=== PATIENT | female | born 1950 | race Caucasian/White ===

== ENCOUNTER 2017-09-24 08:47 | Emergency (ER) | payer MEDICARE, MEDICAID ==
[~2017-09-24] VITALS: Ht 160 cm; Wt 44.5 kg
[2017-09-24 09:01] VITALS: BP 159/93
[2017-09-24] MEDS ORDERED: IBUPROFEN600 MG ORAL (09:35)
[2017-09-24] MEDS ORDERED: GENTAMICIN SUL3.5 GM OP (09:35)
[2017-09-24 09:55] VITALS: BP 159/93
--- NOTE | 2017-09-24 10:15 | Emergency Room Report ---
History of Present Illness General Chief Complaint: Eye Problems Source: Patient Present Illness HPI Patient presents with complaints of left eyebrow redness discharge Ongoing for the past 7 days Patient reports that she wears contacts and has taken her contacts out recently Denies any headache denies any chest pain Patient has eye exam about 3 years ago and has prescription for new glasses and new prescription for contacts Patient reports that when she does not have her contacts in her vision is somewhat blurry However denies any change in vision acutely with the redness Allergies: Coded Allergies: No Known Allergies (Unverified , 09/24/17) Patient History Past Medical History: see triage record Pertinent Family History: none Last Menstrual Period: na Reviewed Nursing Documentation: PMH: Agreed, PSxH: Agreed Nursing Documentation-PMH Past Medical History: No History, Except For Hx Hypertension: Yes History Of Psychiatric Problem: Yes - depression Review of Systems All Other Systems: negative except mentioned in HPI Physical Exam Vital Signs Date Time Temp Pulse Resp B/P (MAP) Pulse Ox O2 Delivery O2 Flow Rate FiO2 09/24/17 08:51 97.8 95 18 159/93 98 Room Air 97.9 Sp02 EP Interpretation: reviewed, normal General Appearance: well appearing, no apparent distress Head: normocephalic, atraumatic Eyes: left eye other - Conjunctivitis, no fluorescing uptake, pupil reactive, bilateral eye PERRL, bilateral eye EOMI ENT: normal pharynx, no angioedema Neck: supple Respiratory: lungs clear Cardiovascular #1: regular rate, rhythm Musculoskeletal: normal inspection Neurologic: alert, oriented x3 Skin: other - No surrounding erythema or swelling Lymphatic: no adenopathy Medical Decision Making Diagnostic Impression: Primary Impression: conjunctivitis ER Course Patient's optic pressure is normal clinically no signs of any proptosis or sunken eye Pupil reacts appropriately suspicion for glaucoma is low Patient has discharge from the left eye Also yellowish crusting All findings are in line with bacterial conjunctivitis patient placed on antibiotics and requires close follow-up Last Vital Signs Date Time Temp Pulse Resp B/P (MAP) Pulse Ox O2 Delivery O2 Flow Rate FiO2 09/24/17 09:55 97.9 18 159/93 98 Room Air 97.9 09/24/17 08:51 95 Status: unchanged Disposition: HOME, SELF-CARE Condition: Stable Scripts Ibuprofen* (MOTRIN*) 600 Mg Tablet 600 MG ORAL Q8H Y for For Pain, #20 TAB 0 Refills Prov: J Luis Shea DO 09/24/17 Gentamicin Sulfate* (GENTAMICIN SULFATE*) 3.5 Gm Oint...g. 3.5 GM OP TID for 7 Days, GM Prov: J Luis Shea DO 09/24/17 Patient Instructions: Bacterial Conjunctivitis Additional Instructions: Patient is provided with the discharge instructions notified to follow up with primary doctor in the next 2-3 days otherwise return to the er with any worsening symptoms. Please note that this report is being documented using miiCard technology. This can lead to erroneous entry secondary to incorrect interpretation by the dictating instrument. J Luis Shea DO Sep 24, 2017 10:15
== END 2017-09-24 09:55 | disposition home or self-care (01) ==
LOC: EMR 09:15
DX: H10.9 Unspecified conjunctivitis (principal); F32.9 Major depressive disorder, single episode, unspecified; I10 Essential (primary) hypertension
CPT/HCPCS: 99284

== ENCOUNTER 2017-12-01 16:02 | Emergency (ER) | payer MEDICARE, MEDICAID ==
[~2017-12-01] VITALS: Ht 160 cm; Wt 90.3 kg
[~2017-12-01 16:02] MED LIST: GENTAMICIN SUL3.5 GM OP; IBUPROFEN600 MG ORAL
[2017-12-01] MEDS ORDERED: Tetracaine 0.5% Opth 4ml Soln BOTH EYES ONE (16:30)
[2017-12-01] MEDS ORDERED: Fluorescein Strips BOTH EYES ONE (16:30)
--- NOTE | 2017-12-01 16:32 | Emergency Room Report ---
History of Present Illness General Chief Complaint: Eye Problems Source: Patient Present Illness HPI 67-year-old female patient presents to ER complaining of burning right eye pain for the past daily. Patient reports pain, itchiness, foreign body sensation in right eye. reports green white crust in right eye during this time. Patient also complaint similar symptoms and left eye during this time. Patient reports that she has been wearing contact lenses for the past 5 years, states that she has been wearing the same pain during this time. Reports previously seen in this ER for conjunctivitis, states symptoms are not hurt as bad as they did that time. Patient reports she has not seen an system support specialist 8 years. denies worsening of vision symptoms. Denies other acute symptoms at this time.denies history of STI. Denies history of a,. Reports history of cataracts, does not know in which eye.reports up to date on vaccinations. Denies exposure to chemicals in eyes. Allergies: Coded Allergies: No Known Allergies (Unverified , 09/24/17) Patient History Past Medical History: see triage record Reviewed Nursing Documentation: PMH: Agreed; PSxH: Agreed Nursing Documentation-PMH Past Medical History: No History, Except For Hx Hypertension: Yes History Of Psychiatric Problem: Yes - Depression Hx Neurological Problems: Yes - chronic back pain s/p spinal fusion, migraines Review of Systems All Other Systems: negative except mentioned in HPI Physical Exam Vital Signs Date Time Temp Pulse Resp B/P (MAP) Pulse Ox O2 Delivery O2 Flow Rate FiO2 12/01/17 16:16 98.1 98 16 130/82 96 Room Air 98.1 Sp02 EP Interpretation: reviewed, normal General Appearance: well appearing, no apparent distress, alert, GCS 15, non- toxic Head: normocephalic, atraumatic Eyes: left eye Scleral Injection; bilateral eye normal inspection, bilateral eye PERRL, bilateral eye fluoroscene uptake - 1-2 mm area of increased uptake at 9 o'clock position in right eye and 3 o'clock position in left eye, no foreign body visualized, no rust ring, bilateral eye EOMI, bilateral eye other - no proptosis, ENT: hearing grossly normal, normal pharynx, no angioedema, normal voice, uvula midline, moist mucus membranes Neck: full range of motion Respiratory: lungs clear, normal breath sounds, no rhonchi, no respiratory distress, no accessory muscle use, no wheezing, speaking full sentences Cardiovascular #1: regular rate, rhythm, no edema Musculoskeletal: back normal, digits/nails normal, gait/station normal, normal range of motion, non-tender Neurologic: alert, oriented x3, responsive, motor strength/tone normal, sensory intact Psychiatric: mood/affect normal Medical Decision Making PA Attestation Dr. Diamond is my supervising Physician whom patient management has been discussed with. Diagnostic Impression: Primary Impression: Corneal abrasion ER Course Pt. presents to the ED c/o eye pain. Ddx considered but are not limited to FB in eye, corneal abrasion, corneal ulcer , blepharitis, orbital blowout fracture, subconjunctival hemorrhage. Patient has no signs of surrounding cellulitis, no pain with eye movement, does not require imaging at this time. low suspicion for glaucoma, no proptosis, no pain with eye movement, pupils equal and reactive to light bilaterally, no worsening symptoms. Vital signs: are WNL, pt. is afebrile PERFORM VISUAL ACUITY Lid Eversion ORDERS: Ophthalmic Tetracaine. Fluorescein stain of eye.. ER COURSE: PE: mild conjunctival injection of left eye, no crusting patient reports she went crusting away. increase forcing uptake noted in both eyes bilaterally, likely due to contact lenses. We'll provide patient treatment with Ocuflox to cover for pseudomonas. Informed patient that she cannot wear contacts while being treated. Do not touch or rub eyes, wash hands. Follow-up with ophthalmology and optometrists. Provided patient with list of free and low-cost clinics that she can follow up with. Patient reports she will follow-up when she gets paid. Informed patient that she can follow-up prior to then and workout payment plan, needs to follow up immediately. patient reports understanding Does not require TDaP at this time, states she is up-to-date on vaccinations. take Tylenol for pain symptoms. ER precautions given. DISCHARGE: - Rx provided for OCUFLOX, place 2 drops in affected eye BID for 7 days - Rx provided for Ibuprofen 600mg for pain symptoms At this time pt. is stable for d/c to home. Patient resting comfortably no acute distress, nontoxic appearing. Will provide printed patient care instructions and any necessary prescriptions. Care plan and follow up instructions have been discussed with the patient prior to discharge Follow-up with slip cover seamstress in 24 hours. Follow-up with primary care provider in 3 -5 days. Take medications as directed. Patient questions asked and answered. ER precautions given, patient instructed to return to ER immediately for any new or worsening of symptoms. - Please note that this Emergency Department Report was dictated using Intuit[employer] fabricator technology software, occasionally this can lead to erroneous entry secondary to interpretation by the dictation equipment. Last Vital Signs Date Time Temp Pulse Resp B/P (MAP) Pulse Ox O2 Delivery O2 Flow Rate FiO2 12/01/17 16:16 98.1 98 16 130/82 96 Room Air 98.1 Disposition: HOME, SELF-CARE Condition: Stable Scripts Ofloxacin (OCUFLOX) 5 Ml Drops 2 DROP OP TID for 7 Days, #5 ML Prov: Bentley Rey 12/01/17 Patient Instructions: Bacterial Conjunctivitis, [id number], Corneal Abrasion , [id number] Additional Instructions: Followup with primary care provider in 3 -5 days. Follow-up with ophthalmology in 24 hours. Follow up with head still operator, discuss need for new prescription, new contact lenses. Do not use contacts longer than recommended time instructed. Take medications as directed. Patient questions asked and answered. ER precautions given, patient instructed to return to ER immediately for any new or worsening of symptoms. Bentley Rey December 01, 2017 16:32
[2017-12-01] MEDS ORDERED: Fluorescein Strips ONE (16:39)
[2017-12-01] MEDS ORDERED: OCUFLOX5 ML OP (17:00)
[2017-12-01 17:07] VITALS: BP 120/71
== END 2017-12-01 17:11 | disposition home or self-care (01) ==
LOC: EMR 16:48
DX: S05.01XA Injury of conjunctiva and corneal abrasion without foreign body, right eye, initial encounter (principal); X58.XXXA Exposure to other specified factors, initial encounter; Y92.9 Unspecified place or not applicable; I10 Essential (primary) hypertension; Z98.1 Arthrodesis status
CPT/HCPCS: 99283

== ENCOUNTER 2019-03-21 13:08 | Emergency (ER) | payer MEDICARE, MEDICAID ==
[~2019-03-21] VITALS: Ht 160 cm; Wt 44.5 kg
[~2019-03-21 13:08] MED LIST changes: +OCUFLOX5 ML OP
[2019-03-21 13:30] VITALS: BP 133/79
--- NOTE | 2019-03-21 13:30 | NUR ---
ED Nurse Note: Patient walked in to ER from home due to vaginal discharge for more than 2 weeks. Patient denied pain or cramping. Patient is alert and oriented x4 and ambulatory. Skin clean and intact. Calm and cooperative. No acute distress noted at this moment.
[2019-03-21] MEDS ORDERED: Lidocaine 1% MPF 10mg/ml 5ml INJ ONE (14:00)
--- NOTE | 2019-03-21 14:00 | Emergency Room Report ---
History of Present Illness General Chief Complaint: Vaginal Source: Patient Present Illness HPI 68-year-old female with no significant past medical history here complaining of 3 weeks of green and white vaginal discharge without any pain or pruritus. Patient reports that she was last sexually active with a new partner 3 weeks ago. Denies pain and painful urination however reports that she was recently diagnosed with a urinary tract infection and finished antibiotics. Denies vaginal ulcers, fever and chills, nausea vomiting. Denies urinary frequency and hematuria. Has not taken medication for symptom relief. Patient had her last menstrual period many years ago and she is post menopause. Denies chest pain, shortness of breath, palpitation, and other associated symptoms. Allergies: Coded Allergies: No Known Allergies (Unverified , 09/24/17) Patient History Past Medical History: see triage record Past Surgical History: unable to obtain Pertinent Family History: none Now: No Immunizations: UTD Reviewed Nursing Documentation: PMH: Agreed; PSxH: Agreed Nursing Documentation-PMH Past Medical History: No History, Except For Hx Hypertension: Yes Hx Neurological Problems: Yes - chronic back pain s/p spinal fusion, migraines Review of Systems All Other Systems: negative except mentioned in HPI Physical Exam Vital Signs Date Time Temp Pulse Resp B/P (MAP) Pulse Ox O2 Delivery O2 Flow Rate FiO2 03/21/19 13:27 98.4 87 18 133/79 (97) 98 Room Air Sp02 EP Interpretation: reviewed, normal General Appearance: no apparent distress, alert, GCS 15, non-toxic Head: normocephalic, atraumatic Eyes: bilateral eye normal inspection, bilateral eye PERRL ENT: hearing grossly normal, normal pharynx, no angioedema, normal voice Neck: full range of motion, supple/symm/no masses Respiratory: chest non-tender, lungs clear, normal breath sounds, speaking full sentences Cardiovascular #1: regular rate, rhythm, no edema Gastrointestinal: normal bowel sounds, non tender, soft, non-distended, no guarding, no rebound Genitourinary: normal inspection, no CVA tenderness Musculoskeletal: back normal, gait/station normal, normal range of motion, non- tender Neurologic: alert, oriented x3, responsive, motor strength/tone normal, sensory intact, speech normal Psychiatric: judgement/insight normal, memory normal, mood/affect normal, no suicidal/homicidal ideation Skin: no rash Lymphatic: no adenopathy Medical Decision Making PA Attestation All diagnoses and treatment plans were reviewed and discussed with my supervising physician Dr. Aguirre Diagnostic Impression: Primary Impression: Vaginal discharge ER Course 68-year-old female with no significant past medical history here complaining of 3 weeks of green and white vaginal discharge without any pain or pruritus. Patient reports that she was last sexually active with a new partner 3 weeks ago. Denies pain and painful urination however reports that she was recently diagnosed with a urinary tract infection and finished antibiotics. Denies vaginal ulcers, fever and chills, nausea vomiting. Denies urinary frequency and hematuria. Has not taken medication for symptom relief. Patient had her last menstrual period many years ago and she is post menopause. Denies chest pain, shortness of breath, palpitation, and other associated symptoms. Ddx considered but are not limited to: vaginitis, yeast infection, BV, chlamydia , Gonorrhea, syphilis, HIV, herpes 1 or 2 Vital signs: are WNL, pt. is afebrile H&PE are most consistent with : Vaginitis ORDERS: UA, GC and chlamydia, doxycycline, Rocephin, Flagyl, Diflucan ED INTERVENTIONS: Rocephin DISCHARGE: At this time pt. is stable for d/c to home. Will provide printed patient care instructions, and any necessary prescriptions. Care plan and follow up instructions have been discussed with the patient prior to discharge. Advised the patient to follow-up with primary care provider worsening symptoms return to the emergency room. Patient agreed to take prophylactic measures for possible chlamydia, gonorrhea, trichomoniasis, yeast infection. Last Vital Signs Date Time Temp Pulse Resp B/P (MAP) Pulse Ox O2 Delivery O2 Flow Rate FiO2 03/21/19 13:27 98.4 87 18 133/79 (97) 98 Room Air Disposition: HOME, SELF-CARE Condition: Stable Scripts Fluconazole (FLUCONAZOLE) 100 Mg Tablet 150 MG ORAL ONCE for 1 Day, #2 TAB 0 Refills Prov: Robyn Petersen 03/21/19 Metronidazole* (FLAGYL*) 500 Mg Tablet 500 MG ORAL BID for 7 Days, #14 TAB Prov: Robyn Petersen 03/21/19 Doxycycline Hyclate (DOXYCYCLINE HYCLATE) 100 Mg Tablet 100 MG PO BID for 7 Days, #14 TAB Prov: Robyn Petersen 03/21/19 Referrals: NOT CHOSEN IPA/,REFERRING (PCP) Patient Instructions: Vaginitis, [id number] Additional Instructions: Take medication as directed follow-up with your primary care provider worsening symptoms return to the emergency room you are being treated for possible bacterial vaginosis, trichomoniasis, chlamydia, gonorrhea, and a yeast infection. Robyn Petersen Mar 21, 2019 14:00
[2019-03-21] MEDS ORDERED: METRONIDAZOLE500 MG ORAL (14:03)
[2019-03-21] MEDS ORDERED: FLUCONAZOLE100 MG ORAL (14:03)
[2019-03-21] MEDS ORDERED: DOXYCYCLINE HY100 M6 PO (14:03)
[2019-03-21 14:11] VITALS: BP 133/79
--- NOTE | 2019-03-21 14:11 | NUR ---
ED Nurse Note: Pt cleared by health care Provider for discharge. DC instructions/prescription was given and explained to pt and verbalized understanding of teachings. All medical deviecs such as ID band removed. Pt is AAO x4, ambulatory and left with all personal belongings.
[2019-03-21 14:30] LABS: APPEARANCE,URINE SLIGHTLY CLOUDY; BILIRUBIN, URINE NEGATIVE (NEGATIVE); COLOR,URINE PALE YELLOW; GLUCOSE, URINE (UA) NEGATIVE (NEGATIVE); KETONES,URINE NEGATIVE (NEGATIVE); LEUKOCYTE ESTERASE ,URINE 3+ (NEGATIVE); NITRITE,URINE NEGATIVE (NEGATIVE); PH,URINE 6 (4.5-8.0); PROTEIN,URINE 1+ (NEGATIVE); UROBILINOGEN,URINE NORMAL MG/DL (0.0-1.0)
== END 2019-03-21 14:10 | disposition home or self-care (01) ==
LOC: EMR 13:48
DX: N89.8 Other specified noninflammatory disorders of vagina (principal); I10 Essential (primary) hypertension; G89.29 Other chronic pain; M54.9 Dorsalgia, unspecified; Z98.1 Arthrodesis status
CPT/HCPCS: 81001; 87086; 87181; 87491; 87590; 96372; 96374; 99284; J0696

== ENCOUNTER 2020-09-19 10:15 | Emergency (ER) | payer MEDICARE, MEDICAID ==
[~2020-09-19] VITALS: Ht 157.5 cm; Wt 56.7 kg
[~2020-09-19 10:15] MED LIST changes: +DOXYCYCLINE HY100 M6 PO; +FLUCONAZOLE100 MG ORAL; +METRONIDAZOLE500 MG ORAL
[2020-09-19 10:29] VITALS: BP 160/80
--- NOTE | 2020-09-19 10:29 | NUR ---
came to er complaints she fell at home hit her side koby table corner last week taking norco still has pain
[2020-09-19 10:40] VITALS: BP 110/73
--- NOTE | 2020-09-19 10:51 | Emergency Room Report ---
History of Present Illness General Chief Complaint: Multiple Trauma/Fall Source: Patient Present Illness HPI Patient is complaining about left-sided chest pain. She fell 5 days ago. She tripped on a carpet. She did not lose consciousness. She hit her left chest. She has been taking Gilead 1 every 12 hours and it has not been controlling the pain. She complains of 9/10 pain at this time. Is worse when she is walking. She denies any other difficulty walking. She had trouble sleeping last night because of the pain. She has been scratching the skin over the area where there is pain. She is uncertain when her last tetanus vaccination was. Patient denies any exposure to Covid positive contacts. No fevers, chills, sore throat, palpitations, nausea, vomiting, diarrhea, dysuria, abdominal pain, shortness of breath, depression, anxiety, visual changes, dizziness, headache. Patient status post Casper uli placement for scoliosis. Allergies: Coded Allergies: No Known Allergies (Unverified , 09/24/17) COVID-19 Screening Contact w/high risk pt: No Experienced COVID-19 symptoms?: No COVID-19 Testing performed DISPENSING LEAD: No Patient History Past Medical History: see triage record Past Surgical History: other - Casper rods Social History: Reports: smoking; Denies: alcohol use Social History Narrative Retired Now: No Reviewed Nursing Documentation: PMH: Agreed; PSxH: Agreed Nursing Documentation-PMH Hx Hypertension: Yes Hx Neurological Problems: Yes - chronic back pain s/p spinal fusion, migraines Review of Systems All Other Systems: negative except mentioned in HPI Physical Exam Vital Signs Date Time Temp Pulse Resp B/P (MAP) Pulse Ox O2 Delivery O2 Flow Rate FiO2 09/19/20 10:22 98.1 80 18 160/80 (106) 97 Room Air Sp02 EP Interpretation: reviewed, normal General Appearance: thin, other - Frail Head: normocephalic Eyes: bilateral eye normal inspection, bilateral eye fluoroscene uptake, bilateral eye EOMI ENT: moist mucus membranes Neck: full range of motion, supple, no bony tend Respiratory: lungs clear, normal breath sounds, other - Chest wall tenderness left lateral around third and fourth ribs without crepitance or deformity. No referred pain with anterior-posterior compression Cardiovascular #1: regular rate, rhythm, no edema Cardiovascular #2: 2+ radial (R) Gastrointestinal: normal inspection, normal bowel sounds, non tender, no mass, non-distended Genitourinary: no CVA tenderness Musculoskeletal: back normal, normal range of motion, gait/station normal Neurologic: alert, oriented x3, grossly normal Psychiatric: mood/affect normal Skin: warm/dry, abrasion - Scratch kaminski over left lateral chest area Medical Decision Making Diagnostic Impression: Primary Impression: Fall Qualified Codes: W19.XXXA - Unspecified fall, initial encounter Additional Impression: Contusion of left chest wall Qualified Codes: S20.212A - Contusion of left front wall of thorax, initial encounter ER Course Patient presents post fall 5 days ago. She has complaints of left-sided chest pain. She been taking Gilead. Patient needs evaluation with EKG as she is having increased pain with walking, CT of the chest. Patient will receive Percocet p.o. in addition she received tetanus vaccination. EKG normal sinus rhythm with right atrial enlargement and minimal voltage criteria for LVH. CT of the chest without fracture. See below Patient improved with treatment. Discussed treatment plan with patient and cautioned about taking deep breaths and risk of pneumonia. No medical emergency at this time and patient improved. Patient stable for outpatient observation and treatment. EKG Diagnostic Results Rate: normal Rhythm: NSR ST Segments: no acute changes Rhythm Strip Diag. Results EP Interpretation: yes Rhythm: NSR, no PVC's, no ectopy CT/MRI/US Diagnostic Results CT/MRI/US Diagnostic Results : Imaging Test Ordered: CT chest Impression 1. No acute findings in the thoracic spine. 2. Right convex thoracic scoliotic curvature. 3. Partial visualization posterior thoracolumbar fixation hardware extending up to T11. 4. Mild coronary calcifications. 5. Partial visualization of distended transverse and descending colon with luminal air and stool, possibly constipation. No rib fractures seen by me. Last Vital Signs Date Time Temp Pulse Resp B/P (MAP) Pulse Ox O2 Delivery O2 Flow Rate FiO2 09/19/20 12:14 89 18 117/73 100 Room Air 09/19/20 10:29 98.1 Status: improved Disposition: HOME, SELF-CARE Condition: Improved Scripts Bacitracin (Bacitracin) 28.4 Gm Oint...g. 1 APPLIC TOPIC BID, #10 GM Prov: Blair Schwab MD 09/19/20 Cyclobenzaprine Hcl* (FLEXERIL*) 10 Mg Tablet 10 MG ORAL THREE TIMES A DAY, #10 TAB Prov: Blair Schwab MD 09/19/20 Ibuprofen* (MOTRIN*) 600 Mg Tablet 600 MG ORAL Q8H PRN for FOR PAIN, #20 TAB 0 Refills Prov: Blair Schwab MD 09/19/20 Oxycodone/Acetaminophen 5-325* (PERCOCET 5-325 MG TABLET*) 1 Each Tablet 1 TAB ORAL Q8H PRN for For Pain, #8 TAB 0 Refills Prov: Blair Schwab MD 09/19/20 Referrals: NON PHYSICIAN (PCP) Blair Schwab MD Sep 19, 2020 10:51
[2020-09-19] MEDS ORDERED: Tetanus/Diptheria/Pertussis IM ONE (11:00)
[2020-09-19] MEDS ORDERED: oxyCODONE HCL/Acetaminophen 5/325mg ORAL ONE (11:00)
--- NOTE | 2020-09-19 11:10 | NUR ---
pt medicated per eMAR. pt on continuous cardiac/O2 monitor. pt states pain on back after falling. pt A&Ox4 on arrival, denies CP. 1112: pt taken to CT.
--- NOTE | 2020-09-19 11:41 | Diagnostic Imaging Report ---
EXAM: CT Chest Without Intravenous Contrast CLINICAL HISTORY: TRAUMA TECHNIQUE: Axial computed tomography images of the chest without intravenous contrast. Sagittal and coronal reformatted images were created and reviewed. CTDI is 2.8 mGy and DLP is 101.6 mGy-cm. One or more of the following dose reduction techniques were used: automated exposure control, adjustment of the mA and/or kV according to patient size, use of iterative reconstruction technique. COMPARISON: No relevant prior studies available. FINDINGS: Lungs: Linear atelectasis in bilateral lower lobes. The lungs otherwise appear clear.. No mass. No consolidation. Pleural space: Unremarkable. No pneumothorax. No effusion. Heart: Mild coronary calcifications. Bones/joints: Right convex thoracic scoliotic curvature. Partial visualization posterior thoracolumbar fixation hardware extending up to T11. No acute fracture. No dislocation. Soft tissues: Unremarkable. Vasculature: Atherosclerotic calcifications are noted within the aortic arch. No thoracic aortic aneurysm or dissection. Lymph nodes: Unremarkable. No enlarged lymph nodes. Stomach and bowel: Partial visualization of distended transverse and descending colon with luminal air and stool, possibly constipation. IMPRESSION: 1. No acute findings in the thoracic spine. 2. Right convex thoracic scoliotic curvature. 3. Partial visualization posterior thoracolumbar fixation hardware extending up to T11. 4. Mild coronary calcifications. 5. Partial visualization of distended transverse and descending colon with luminal air and stool, possibly constipation.
[2020-09-19] MEDS ORDERED: CYCLOBENZAPRINE10 MG ORAL (11:56)
[2020-09-19] MEDS ORDERED: BACITRACIN15 GM TOPIC (11:56)
[2020-09-19] MEDS ORDERED: PERCOCET 5-3251 EACH ORAL (11:56)
[2020-09-19] MEDS ORDERED: IBUPROFEN600 M1 ORAL (11:56)
[2020-09-19 12:14] VITALS: BP 117/73
== END 2020-09-19 12:15 | disposition home or self-care (01) ==
LOC: EMR 10:36
DX: S20.212A Contusion of left front wall of thorax, initial encounter (principal); F17.200 Nicotine dependence, unspecified, uncomplicated; W01.0XXA Fall on same level from slipping, tripping and stumbling without subsequent striking against object, initial encounter; Y93.9 Activity, unspecified; Y92.9 Unspecified place or not applicable; Y99.9 Unspecified external cause status
CPT/HCPCS: 71250; 90471; 90715; 93005; 99284